=== PATIENT | female | born 1975 | race Caucasian/White ===

== ENCOUNTER 2021-03-02 22:19 | Emergency (ER) | payer MEDICAID ==
[~2021-03-02] VITALS: Ht 160 cm; Wt 81.6 kg
[2021-03-02 22:27] VITALS: BP 121/74
--- NOTE | 2021-03-02 22:30 | NUR ---
TO LOBBY A/W BED AMBULATORY
--- NOTE | 2021-03-02 22:37 | NUR ---
PT AMBULATED TO ER BED 02
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
--- NOTE | 2021-03-02 23:15 | NUR ---
Female Die Turner accompanied female patient for BREAST Exam.
--- NOTE | 2021-03-02 23:28 | NUR ---
Female Child Care Attendant accompanied female patient for Ultrasound of breast.
[2021-03-02] MEDS ORDERED: KETOROLAC 30 MG/ML VIAL ONE (23:58)
[2021-03-03] MEDS ORDERED: KETOROLAC 30 MG/ML VIAL IM ONE
--- NOTE | 2021-03-03 00:25 | NUR ---
PATIENT REPORTS PAIN IS GONE NOW 0/10. PATIENT SITTING IN BED LOCKED IN LOWEST POSITION W X1 SIDERAIL UP. HOB ELEVATED. BREATHING EVEN AND UNLABORED. VSS.
[2021-03-03] MEDS ORDERED: NAPR-54 PO (01:38)
[2021-03-03 01:56] VITALS: BP 111/56
== END 2021-03-03 01:56 | disposition home or self-care (01) ==
LOC: MED 22:19
DX: N60.02 Solitary cyst of left breast (principal)
CPT/HCPCS: 71045; 76641; 93005; 96372; 99284; J1885; Q0092; 99285